=== PATIENT | male | born 1980 | race Caucasian/White ===

== ENCOUNTER 2021-01-18 06:54 | Emergency (ER) | payer SELFPAY ==
[~2021-01-18] VITALS: Ht 167.6 cm; Wt 82.0 kg
[2021-01-18] MEDS ORDERED: ACETAMINOPHEN WITH CODEINE 300/30MG TABLET PO ONE (07:30)
[2021-01-18] MEDS ORDERED: SULF1TAB48 PO (08:46)
[2021-01-18] MEDS ORDERED: T3 PO (08:46)
[2021-01-18] MEDS ORDERED: CEPH500T MT (08:46)
[2021-01-18] MEDS ORDERED: IBUP-2028 PO (08:46)
[2021-01-18 09:18] VITALS: BP 115/67
== END 2021-01-18 09:21 | disposition home or self-care (01) ==
LOC: ER 06:54
DX: L03.116 Cellulitis of left lower limb (principal); L03.115 Cellulitis of right lower limb; F17.200 Nicotine dependence, unspecified, uncomplicated; I49.9 Cardiac arrhythmia, unspecified
CPT/HCPCS: 73560; 93005; 99283; Z7610